=== PATIENT | female | born 1975 | race Caucasian/White ===

== ENCOUNTER → 2019-09-13 14:04 | Outpatient (CLI) | payer OTHER, SELFPAY ==
--- NOTE | 2019-09-13 14:11 | US_ITS ---
STUDY: ULTRASOUND TRANSVAGINAL CLINICAL: Female, 44 years old. POSTCOITAL BLEEDING TECHNIQUE: Transvaginal COMPARISON: None. FINDINGS: Normal uterine size measuring 6.8 x 3.7 x 4.4 cm in maximal craniocaudal dimension. There are no myometrial masses. Normal endometrial thickness measuring 13 mm. There is a 1 cm oval hypoechoic mass within the endometrial cavity worrisome for polyp or carcinoma. Correlation with hysteroscopy is recommended.. Normal uterine cervix. Normal right ovary, measuring 2.8 x 2.2 x 1.6 cm. There are multiple follicles without a dominant cyst. Normal left ovary, measuring 2.8 x 1.8 x 1.7 cm. There are multiple follicles without a dominant cyst. Small amount of free fluid in the pelvis to Polycystic ovary disease: No. US/Pelvic (Non ) IMPRESSION: 1 cm hypoechoic mass within the endometrial cavity worrisome for polyp or carcinoma. Correlation with hysteroscopy is recommended. Electronically Signed: Juan Luis Cruz MD at 16:52 EST Tel , Service support ,
--- NOTE | 2019-09-13 14:11 | US_ITS ---
STUDY: ULTRASOUND TRANSVAGINAL CLINICAL: Female, 44 years old. POSTCOITAL BLEEDING TECHNIQUE: Transvaginal COMPARISON: None. FINDINGS: Normal uterine size measuring 6.8 x 3.7 x 4.4 cm in maximal craniocaudal dimension. There are no myometrial masses. Normal endometrial thickness measuring 13 mm. There is a 1 cm oval hypoechoic mass within the endometrial cavity worrisome for polyp or carcinoma. Correlation with hysteroscopy is recommended.. Normal uterine cervix. Normal right ovary, measuring 2.8 x 2.2 x 1.6 cm. There are multiple follicles without a dominant cyst. Normal left ovary, measuring 2.8 x 1.8 x 1.7 cm. There are multiple follicles without a dominant cyst. Small amount of free fluid in the pelvis to Polycystic ovary disease: No. US/Transvaginal Non- IMPRESSION: 1 cm hypoechoic mass within the endometrial cavity worrisome for polyp or carcinoma. Correlation with hysteroscopy is recommended. Electronically Signed: Juan Luis Cruz MD at 16:52 EST Tel , Service support ,
--- NOTE | 2019-09-13 14:48 | BI_ITS ---
MAMMOGRAPHY - BILATERAL SCREENING REASON FOR EXAM: Female, 44 years old. Routine annual screening examination. PERTINENT HISTORY: No pertinent history TECHNIQUE: Digital bilateral breast ana (3D mammographic acquisition) in the CC and MLO projections. 2-D mediolateral oblique (MLO) and craniocaudad (CC) views of both breasts were obtained. CAD: Full Field Digital Mammography with Computer Added Detection was performed. COMPARISON: None. FINDINGS: Breast Composition: Heterogeneously dense There are no dominant masses or suspicious calcifications. No other significant abnormalities are identified. BI/SCREEN MAMM (CAD) W/ANA BILAT IMPRESSION: Stable bilateral screening mammogram. Yearly follow-up mammogram recommended. (A) ASSESSMENT CATEGORY: BIRADS Category 1: Negative. A letter regarding these results will be sent to the patient by the facility within 30 days. Approximately 10% of breast cancers are not detected by mammography. A normal mammogram should not delay biopsy of a clinically suspicious abnormality. [id number] Electronically Signed: William Cox, at 16:12 EST Tel , Service support ,
== END ==
PROVIDERS: PCP Family Medicine
DX: N93.0 Postcoital and contact bleeding (principal); N94.10 Unspecified dyspareunia; Z12.31 Encounter for screening mammogram for malignant neoplasm of breast
CPT/HCPCS: 76830; 76856; 77063; 77067

== ENCOUNTER 2021-08-17 03:09 | Emergency (ER) | payer OTHER, SELFPAY ==
[2021-08-17 03:10] VITALS: BP 156/104; PULSE 68; RESP 18; TEMP 35.7; O2SAT 99; BMI 31.9
--- NOTE | 2021-08-17 03:26 | CT_ITS ---
EXAM: CT ABDOMEN AND PELVIS WITHOUT INTRAVENOUS CONTRAST CLINICAL INDICATION: right flank pain TECHNIQUE: Helically acquired images were obtained of the abdomen and pelvis without intravenous contrast. CTDIvol = ( 7.37 ) mGy, DLP = ( 370.10 ) mGycm This CT exam was performed using one or more of the following dose reduction techniques: automated exposure control, adjustment of the mA and/or kV according to patient size, and/or use of iterative reconstruction technique. This report was created using [employer] report generation technology. COMPARISON: None. FINDINGS: LOWER THORAX: Unremarkable. Lung bases are clear. No cardiomegaly. No significant pericardial effusion. ABDOMEN: LIVER: Unremarkable. Homogeneous. GALLBLADDER AND BILE DUCTS: Unremarkable. No calcified gallstones. No gallbladder distention or wall edema. No intra- or extrahepatic biliary ductal dilation. PANCREAS: Unremarkable. No focal cystic mass. SPLEEN: Unremarkable. Normal size without focal cystic or solid mass. ADRENALS: Unremarkable. No nodules. KIDNEYS AND URETERS: Unremarkable. Normal renal size and position. No hydronephrosis. STOMACH AND BOWEL: Unremarkable. No stomach or bowel distention. No focal inflammatory change. PELVIS: APPENDIX: No evidence of acute appendicitis. BLADDER: Unremarkable. REPRODUCTIVE: Unremarkable as visualized. No mass. ABDOMEN and PELVIS: INTRAPERITONEAL SPACE: Unremarkable. No ascites or other fluid collection. No free air. BONES/JOINTS: Unremarkable. No suspicious lytic or blastic abnormality. SOFT TISSUES: Unremarkable. No discrete abdominal or pelvic wall hernia. VASCULATURE: Unremarkable. Abdominal aorta is non-dilated. LYMPH NODES: Unremarkable. No enlarged lymph nodes. CT/Abdomen/Pelvis without Cont IMPRESSION: Negative CT of the abdomen and pelvis without intravenous contrast. Electronically Signed: Markus Arreola MD at 4:05 [facility] ,
[2021-08-17 03:37] LABS: Mucous, Urine 0 SEEN /hpf (<or=2+)
[2021-08-17 03:38] LABS: Absolute Neutrophil Count 5.3 X10^3/uL (2.0-7.7); Basophil# 0.05 X10^3/uL; Basophil% 0.5 % (0-1); Eosinophil# 0.09 X10^3/uL; Eosinophils% 0.9 % (0-5); Hematocrit 39.9 % (37-47); Hemoglobin 13.6 g/dL (12.0-15.0); Lymphocyte % 38.2 % (19-41); Mean Corp Hgb Conc 34.1 g/dL (32-36); Mean Corpuscular Volume 88.1 fL (81-99); Mean Platelet Vol. 11.4 fl (6.2-12.0); Monocyte# 0.66 X10^3/uL; Monocyte% 6.6 % (0-10); NRBC Flagged by Analyzer 0 % (0-5); Neutrophil # 5.32 X10^3/uL (2.7-7.7); Neutrophil % 53.5 % (47-70); Platelet Count 279 K/mm3 (150-450); RBC Distribution Width CV 12.2 % (11.6-14.6); RBC Distribution Width SD 39.1 fl (35.1-43.9); Red Blood Count 4.53 M/mm3 (4.2-5.4)
[2021-08-17 03:39] LABS: Color, Urine Yellow (Yellow); Glucose, Dipstick 50 mg/dl (Normal); Ketone-Dipstick 5 mg/dl (Negative); Leukocyte Esterase-Dipstick Negative /ul (Negative); Nitrite-Dipstick Negative (Negative); Occult Blood-Urine 150 /ul (Negative); Protein-Dipstick 30 mg/dl (Negative); Urine Clarity Clear (Clear); Urine Urobilinogen 1 mg/dl (Normal)
[2021-08-17] MEDS: Ondansetron 4 MG/2 ML Vial IV (03:39)
[2021-08-17] MEDS: Morphine 4 MG/ML Syringe IV (03:39)
[2021-08-17] MEDS: 0.9% Normal Saline 1,000 ML 999 ML IV (03:40)
[2021-08-17 03:43] LABS: Internal QC Validated? YES +Cl - CLEAR BKGD; Pregnancy, Urine Negative Negative
[2021-08-17 03:49] LABS: Urine Bilirubin Dipstick 1 mg/dL (Negative)
[2021-08-17 03:50] LABS: Red Blood Cells-Urine 0-5 SEEN /hpf (0-5); Squamous Epithelial Cells - UA 5-10 SEEN /hpf (5-10)
[2021-08-17 03:51] LABS: Bacteria 2+ /hpf (None Seen); White Blood Cells 0-5 SEEN /hpf (0-5)
--- NOTE | 2021-08-17 04:22 | US_ITS ---
HISTORY: pelvic pain and spotting EXAMINATION: US Transvaginal Non-OB TECHNIQUE: Transvaginal (for optimal evaluation of the adnexa) pelvic ultrasound was performed. Grayscale, spectral waveform, and color flow Doppler evaluation of the adnexa. COMPARISON: Unenhanced CT abdomen and pelvis from 2 hours prior. FINDINGS: Uterus measures 7.1 x 5.1 x 5.5 cm. Endometrial stripe 4 mm diameter. Within posterior body of uterus, intimately abutting endometrium, there is heterogeneous and hypoechoic ovoid masslike structure measuring 2.1 x 1.7 x 2 cm. There is adjacent small anechoic 9 mm round structure. Smaller heterogeneous and hypoechoic lesion within posterior uterine myometrium measures 1.5 x 1.3 x 1.3 cm. Cervix is closed. No adnexal mass or significant free pelvic fluid identified. Bilateral ovaries demonstrate normal color Doppler flow and spectral Doppler waveforms. Right ovary measures 2.1 x 0.9 x 1.3 cm and left ovary 3.7 x 1.7 x 2.2 cm. Slightly heterogeneous hypoechoic left ovarian cyst measures 1.6 x 1 x 1.2 cm. US/Transvaginal Non- IMPRESSION: 1. At least 3 uterine fibroids identified, largest is submucosal in location and intimately abutting endometrium. This may represent source of bleeding. Recommend gynecologic follow-up for further management. 2. Probable partially involuted dominant left ovarian follicle, with no significant free pelvic fluid. No evidence of ovarian torsion. at 0648 Reported and signed by: Dez Delgado MD Electronically Signed: Dez Delgado MD at 6:47 EST ,
[2021-08-17 04:32] LABS: Anion Gap 5 (5-15); BUN 13 mg/dL (7-18); BUN/Creat Ratio 14.3 RATIO (10-20); Calcium,Total 8.6 mg/dL (8.5-10.1); Chloride 105 mmol/L (98-107); Creatinine, Serum 0.91 mg/dL (0.55-1.02); EST Glomerular Filtration Rate 71 mL/min (>60); Est Glom Filt Rate - Afr Amer 86 mL/min (>60); Estimated Creatinine Clearance 64.58 ml/min; Glucose 196 mg/dL (74-106); Potassium 4.2 mmol/L (3.5-5.1); Sodium Level 138 mmol/L (136-145)
[2021-08-17] MEDS: HYDROmorphone 1 MG/ML Syringe IV (04:39)
--- NOTE | 2021-08-17 04:50 | EX.ED.DYSGE1 ---
HPI History of Present Illness Chief Complaint: Abd Pain Narrative Narrative: Patient is a 46-year-old female who states she went to bed normally last evening and then awoke around 3 this morning with right sided abdominal pain that is sharp in nature. She states the pain caused her to vomit a few times and she reports that there is no improvement or worsening the pain with any type of motion or body position change. She states there has been no recent trauma or excessive activity. She denies any recent sick symptoms. She states based on the sudden onset and severity of the pain she is concerned that this could be gallbladder or kidney stone and secondary to this comes in for evaluation [facility] Medical History Depression Migraine Home Medications cephalexin 500 mg PO TID 7 Days #21 cap 08/17/21 [Rx Last Taken Unknown] duloxetine 60 mg PO DAILY 08/17/21 [History Last Taken Unknown] hydrocodone-acetaminophen 1 tab PO Q6H PRN 3 Days #12 tab 08/17/21 [Rx Last Taken Unknown] ondansetron 4 mg PO Q8H PRN #21 tab 08/17/21 [Rx Last Taken Unknown] Allergy/AdvReac Type Severity Reaction Status Date / Time No Known Allergies Allergy Verified 08/17/21 03:10 Surgical History (Updated 08/17/21 @ 03:14 by Felisha Franco) History of ovarian cystectomy Hx of appendectomy Hx of tonsillectomy Social History Smoking Status: Never smoker ROS ROS ED Constitutional Constitutional ED: Denies chills or fever(s) ENT ENT ED: Denies sore throat Cardiovascular Cardiovascular: Denies chest pain Respiratory/Chest Respiratory/Chest: Denies cough or dyspnea Gastrointestinal Gastrointestinal: Reports abdominal pain, nausea and vomiting; Denies diarrhea Genitourinary Genitourinary ED: Denies dysuria Musculoskeletal Musculoskeletal: Reports back pain; Denies myalgias Integumentary Denies rash Neurologic Neurologic: Denies headache(s) Hematologic/Lymphatic Hematologic/Lymphatic: Denies easy bleeding or easy bruising EXAM Physical Exam Const Vital Signs: 08/17/21 03:10 08/17/21 06:05 Temperature 96.2 F L Temperature Source Temporal Pulse Rate 68 76 Respiratory Rate 18 16 Blood Pressure 156/104 H 118/79 Blood Pressure Mean 121 92 Pulse Ox 99 100 Oxygen Delivery Method Room Air Room Air Positive well nourished and well developed General Appearance ED: well developed HEENT Reports moist mucous membranes Eyes PERRL and EOMs intact bilaterally Neck supple Resp normal respiratory effort and clear to auscultation bilaterally Cardio regular rate and regular rhythm Rate: other Other Details: Radial pulses are +2-4 bilaterally are equal and symmetric GI non-distended GI Narrative: Abdomen is soft and nondistended with pain with palpation in the right upper mid and lower quadrant. There is mild voluntary guarding at these sites. No pulsatile mass Auscultation: normoactive bowel sounds Palpation: soft Back/Spine Back/Spine Narrative: Positive right CVA pain Extremity normal to inspection Neuro oriented x3 and CN's II-XII intact bilaterally Sensorium / Orientation: alert Motor Exam: strength 5/5 throughout Psych mental status grossly normal Skin no rashes or lesions noted Skin Narrative: No overlying soft tissue changes to suggest trauma or infection MDM MDM MDM Narrative Medical decision making narrative: Patient presented to the ER afebrile but reported sudden onset right-sided abdominal pain that woke her from sleep. The pain was both upper mid and lower abdomen as well as in the right CVA which led me to believe patient may be has a kidney stone as a cause of her pain. A noncontrast CT was obtained which shows no obvious stone. Secondary to this added a lipase and liver enzymes which were also normal. As patient has persistent pain there is concern she could be having ovarian torsion so ultrasound was called in to evaluate the patient. Ultrasound showed uterine fibroids but no torsion. On reevaluation she is feeling better after treatment with IV fluids morphine and Dilaudid. At this time she does not have acute kidney injury or pancreatitis changes based on CT scan and laboratory values and torsion has been ruled out secondary to the ultrasound. There is a chance patient has passed a kidney stone but as she does not have CANDELARIA there is no need for further evaluation on this standpoint. Also there is a possibility patient had a biliary colic attack but as she does not have changes to suggest acute cholecystitis this can be worked up on an outpatient basis as well. The patient's urine did show +2 bacteria but there is mild contamination. She does not have any dysuria symptoms but based on the bacteria I will send the urine for culture and place her on a weeks worth of Keflex. Patient will also follow-up with her [employer] secondary to the fibroids found on today's visit Lab Data Attestation: I reviewed the patient's lab results. Labs: Laboratory Results - last 24 hr 08/17/21 08/17/21 08/17/21 03:20 03:20 03:20 WBC 10.0 RBC 4.53 Hgb 13.6 Hct 39.9 MCV 88.1 MCH 30.0 MCHC 34.1 RDW Std Deviation 39.1 RDW Coeff of Beena 12.2 Plt Count 279 MPV 11.4 Immature Gran % (Auto) 0.300 Neut % (Auto) 53.5 Lymph % (Auto) 38.2 [place] % (Auto) 6.6 Eos % (Auto) 0.9 Baso % (Auto) 0.5 Absolute Neuts (auto) 5.3 Absolute Lymphs (auto) 3.80 Nucleated RBC % 0 Sodium 138 Potassium 4.2 Chloride 105 Carbon Dioxide 28.0 Anion Gap 5 BUN 13 Creatinine 0.91 Estim Creat Clear Calc 64.58 Est GFR (MDRD) Af Amer 86 Est GFR (MDRD) Non-Af 71 BUN/Creatinine Ratio 14.3 Glucose 196 H Calcium 8.6 Total Bilirubin 0.50 Direct Bilirubin 0.08 AST 40 H ALT 21 Alkaline Phosphatase 61 Total Protein 7.2 Albumin 3.4 Globulin 3.8 Lipase 104 Urine Color Urine Clarity Urine pH Ur Specific [place] Urine Protein Urine Glucose (UA) Urine Ketones Urine Occult Blood Urine Nitrite Urine Bilirubin Urine Urobilinogen Ur Leukocyte Esterase Urine RBC Urine WBC Ur Squamous Epith Cells Urine Bacteria Urine Mucus Urine Test 08/17/21 03:30 WBC RBC Hgb Hct MCV MCH MCHC RDW Std Deviation RDW Coeff of Beena Plt Count MPV Immature Gran % (Auto) Neut % (Auto) Lymph % (Auto) [place] % (Auto) Eos % (Auto) Baso % (Auto) Absolute Neuts (auto) Absolute Lymphs (auto) Nucleated RBC % Sodium Potassium Chloride Carbon Dioxide Anion Gap BUN Creatinine Estim Creat Clear Calc Est GFR (MDRD) Af Amer Est GFR (MDRD) Non-Af BUN/Creatinine Ratio Glucose Calcium Total Bilirubin Direct Bilirubin AST ALT Alkaline Phosphatase Total Protein Albumin Globulin Lipase Urine Color Yellow Urine Clarity Clear Urine pH 5.0 Ur Specific [place] 1.030 Urine Protein 30 H Urine Glucose (UA) 50 H Urine Ketones 5 H Urine Occult Blood 150 H Urine Nitrite Negative Urine Bilirubin 1 H Urine Urobilinogen 1 H Ur Leukocyte Esterase Negative Urine RBC 0-5 SEEN Urine WBC 0-5 SEEN Ur Squamous Epith Cells 5-10 SEEN Urine Bacteria 2+ Urine Mucus 0 SEEN Urine Test Negative Radiography Diagnostic Testing: Clinical Impression(s) from Imaging Studies Abdomen/Pelvis CT 08/17/21 03:26 IMPRESSION: Negative CT of the abdomen and pelvis without intravenous contrast. Electronically Signed: Markus Arreola MD at 4:05 EST , Transvaginal US 08/17/21 04:22 IMPRESSION: 1. At least 3 uterine fibroids identified, largest is submucosal in location and intimately abutting endometrium. This may represent source of bleeding. Recommend gynecologic follow-up for further management. 2. Probable partially involuted dominant left ovarian follicle, with no significant free pelvic fluid. No evidence of ovarian torsion. at 0648 Reported and signed by: Dez Delgado MD Electronically Signed: Dez Delgado MD at 6:47 EST , Discharge Plan Triage Chief Complaint: Abd Pain ED Provider: Markus Love Dx/Rx/DC Orders Clinical Impression: Uterine fibroid Instructions: ED Abdominal Pain Gallstone Poss, ED Uterine Fibroids Prescriptions: New hydrocodone-acetaminophen 5-325 mg tablet 1 tab PO Q6H PRN (Reason: pain) 3 Days Qty: 12 RF: 0 ondansetron 4 mg tablet,disintegrating 4 mg PO Q8H PRN (Reason: nausea and vomiting) Qty: 21 RF: 0 cephalexin 500 mg capsule 500 mg PO TID 7 Days Qty: 21 RF: 0 No Action duloxetine 60 mg capsule,delayed release(DR/EC) 60 mg PO DAILY RF: 0 Primary Care Provider: Negro Murphy Referrals: Radha Arias MD [STAFF PHYSICIAN] - 5-7 Days Negro Murphy DO [Primary Care Provider] - Disposition Disposition: Home, Self Care
[2021-08-17 04:58] LABS: AST(SGOT) 40 U/L (15-37); Alanine Aminotransfer ALT/SGPT 21 U/L (13-56); Albumin, Serum 3.4 g/dL (3.2-5.0); Alkaline Phosphatase 61 U/L (45-117); Bilirubin, Direct 0.08 mg/dL (0.00-0.30); Globulin 3.8 g/dL (2.2-4.2); Lipase 104 U/L (73-393); Protein, Total 7.2 g/dL (6.4-8.2)
[2021-08-17 06:05] VITALS: BP 118/79; PULSE 76; RESP 16; O2SAT 100
[2021-08-17 07:29] VITALS: BP 134/69; PULSE 72; RESP 15; O2SAT 97
== END 2021-08-17 07:31 | disposition home or self-care (01) ==
PROVIDERS: Emergency Provider Emergency Medicine; PCP Family Medicine; Visit Provider Emergency Medicine
DX: D25.9 Leiomyoma of uterus, unspecified (principal); Z79.899 Other long term (current) drug therapy
CPT/HCPCS: 74176; 76830; 80048; 80076; 81001; 81025; 83690; 85025; 87086; 93976; 96374; 96375; 99283; J7030; A4216; J2405